=== PATIENT | female | born 1985 | race Caucasian/White ===

== ENCOUNTER 2019-03-16 12:36 | Emergency (ER) | payer MEDICAID, OTHER, SELFPAY ==
[~2019-03-16] VITALS: Ht 160 cm; Wt 62.1 kg
[2019-03-16 12:57] VITALS: BP 101/47
[2019-03-16] MEDS ORDERED: DIPHENHYDRAMINE 25 MG CAPSULE PO ONE (13:30)
[2019-03-16] MEDS ORDERED: DIPHENHYDRAMINE 25 MG CAPSULE ONE (13:33)
== END 2019-03-16 13:54 | disposition home or self-care (01) ==
LOC: ED 13:33
DX: T78.49XA Other allergy, initial encounter (principal); R21 Rash and other nonspecific skin eruption; L03.211 Cellulitis of face; X58.XXXA Exposure to other specified factors, initial encounter
CPT/HCPCS: 99283; Q0163

== ENCOUNTER 2019-09-29 17:14 | Emergency (ER) | payer MEDICAID ==
[~2019-09-29] VITALS: Ht 160 cm; Wt 62.1 kg
[2019-09-29 17:15] VITALS: BP 134/65
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
[2019-09-29] MEDS ORDERED: ONDANSETRON 2MG/ML, 2ML IVPush ONE (18:00)
[2019-09-29] MEDS ORDERED: FAMOTIDINE 20 MG/2 ML IVPush ONE (18:00)
[2019-09-29] MEDS ORDERED: ONDANSETRON 2MG/ML, 2ML ONE (18:01)
[2019-09-29] MEDS ORDERED: FAMOTIDINE 20 MG/2 ML ONE (18:01)
[2019-09-29 18:24] LABS: BASOPHILS # (AUTO) 0.02 x10^3/uL (0-0.1); BASOPHILS % (AUTO) 0 % (0-1); EOSINOPHILS # (AUTO) 0.03 x10^3/uL (0-0.4); EOSINOPHILS % (AUTO) 0 % (1-7); LYMPHOCYTES # (AUTO) 1.51 x10^3/uL (1-3.4); LYMPHOCYTES % (AUTO) 19 % (22-44); MD NO; MEAN CORPUSCULAR HEMOGLOBIN 31.6 pg (27.0-34.8); MEAN PLATELET VOLUME 9.2 fL (7.4-10.4); MONOCYTES # (AUTO) 0.67 x10^3/uL (0.2-0.8); MONOCYTES % (AUTO) 9 % (2-9); NEUTROPHILS # (AUTO) 5.64 x10^3/uL (1.8-6.8); NEUTROPHILS % (AUTO) 72 % (42-75); PLATELET COUNT 186 x10^3/uL (130-400); RED CELL DISTRIBUTION WIDTH 13.2 % (9.6-15.2)
[2019-09-29 18:34] LABS: ALANINE AMINOTRANSFERASE 13 U/L (12-78); ALBUMIN 3.6 g/dL (3.4-5.0); ANION GAP 7 mmol/L (5-15); CALCIUM 8.9 mg/dL (8.5-10.1); CHLORIDE 109 mmol/L (98-107)
[2019-09-29 18:37] LABS: ALKALINE PHOSPHATASE 55 U/L (45-117); BILIRUBIN,TOTAL 0.6 mg/dL (0.2-1.0); TOTAL PROTEIN 7.1 g/dL (6.4-8.2)
[2019-09-29] MEDS ORDERED: SODIUM CHLORIDE 0.9% 1,000ML IVBOLUS ONE (19:00)
[2019-09-29] MEDS ORDERED: SODIUM CHLORIDE FLUSH 10ML SYR IVF ONE (19:00)
[2019-09-29 19:02] LABS: MICROSCOPIC AUTO
== END 2019-09-29 19:59 ==
LOC: ED 19:53
DX: O21.0 Mild hyperemesis gravidarum (principal); O21.8 Other vomiting complicating pregnancy; O26.891 Other specified pregnancy related conditions, first trimester; R10.30 Lower abdominal pain, unspecified; Z3A.10 10 weeks gestation of pregnancy; Z87.891 Personal history of nicotine dependence
CPT/HCPCS: 36415; 76801; 80053; 81001; 85025; 96361; 96374; 96375; 99284; J2405; J3490; J7030

== ENCOUNTER 2019-12-04 19:46 | Emergency (ER) | payer MEDICAID, OTHER ==
[~2019-12-04] VITALS: Ht 157.5 cm; Wt 68.3 kg
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
[2019-12-04] MEDS ORDERED: [UNRECOGNIZED DRUG - OTHER] PO (20:09)
[2019-12-04] MEDS ORDERED: ZIPR40CA2 PO (20:09)
[2019-12-04] MEDS ORDERED: LEVO75TA5 PO (20:09)
[2019-12-04] MEDS ORDERED: FAMO20TA7 PO (20:09)
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
--- NOTE | 2019-12-04 20:32 | NUR ---
L AND D CALLED TO CHECK HEART TONES. PT RESTING IN [place], NO CHANGE IN CONDITION, WCTM.
--- NOTE | 2019-12-04 20:58 | NUR ---
L&D RN at bedside, pt denies any leaking or bleeding, abd palpates soft, no bruising on abd noted at this time. heart tones ausculated over [id number], movement audible. pt states her OB is Dr. Davis. Dr. Kaplan oncall for Dr. Davis, call Dr. Kaplan with status update. md said no further orders defer to ER md.
[2019-12-04] MEDS ORDERED: ACETAMINOPHEN 325 MG TABLET PO ONE (21:30)
--- NOTE | 2019-12-04 21:42 | NUR ---
PT RESTING IN [facility], STATES SHE IS "CRAMPING REALY BAD", PT MEDICATED PER JUL. NAD. WCTM. CALL LIGHT ON LAP, WAITING FOR US RESULTS.
[2019-12-04] MEDS ORDERED: ACETAMINOPHEN 325 MG TABLET ONE (21:46)
[2019-12-04 22:13] VITALS: BP 106/73
--- NOTE | 2019-12-04 22:56 | NUR ---
Patient/Caregiver given discharge instructions and they have confirmed that they understand the instructions. Patient ambulatory with steady gait. DENIES ADDITIONAL NEEDS OR QUESTIONS AT THIS TIME. NAD, VSS. NO BELONGINGS LEFT IN ROOM AT TIME OF DC.
== END 2019-12-04 23:00 | disposition home or self-care (01) ==
LOC: ED 21:38
DX: O9A.212 Injury, poisoning and certain other consequences of external causes complicating pregnancy, second trimester (principal); S39.91XA Unspecified injury of abdomen, initial encounter; Z3A.20 20 weeks gestation of pregnancy; V57.6XXA Passenger in pick-up truck or van injured in collision with fixed or stationary object in traffic accident, initial encounter; Y93.89 Activity, other specified; Y92.410 Unspecified street and highway as the place of occurrence of the external cause; Y99.8 Other external cause status
CPT/HCPCS: 76815; 99285

== ENCOUNTER 2019-12-09 10:43 | Outpatient (CLI) | payer MEDICAID, OTHER ==
[~2019-12-09] VITALS: Ht 157.5 cm; Wt 68.2 kg
[~2019-12-09 10:43] MED LIST: FAMO20TA7 PO; LEVO75TA5 PO; ZIPR40CA2 PO; [UNRECOGNIZED DRUG - OTHER] PO
[2019-12-09 11:09] VITALS: BP 102/56
[2019-12-09 11:15] LABS: MICROSCOPIC NOT IND
[2019-12-09 13:06] LABS: CLUE CELLS NONE SEEN (NONE SEEN); WET PREP WBCS MODERATE (FEW)
[2019-12-09 13:46] LABS: CLUE CELLS NONE SEEN (NONE SEEN); WET PREP WBCS MANY (FEW)
== END 2019-12-09 13:48 | disposition home or self-care (01) ==
LOC: LDOP 10:43
PROVIDERS: ATTEND Obstetrics & Gynecology
DX: O09.512 Supervision of elderly primigravida, second trimester (principal); O26.892 Other specified pregnancy related conditions, second trimester; R10.9 Unspecified abdominal pain; Z3A.21 21 weeks gestation of pregnancy
CPT/HCPCS: 81003; 87086; 87210; 87491; 87591; 87808; 99201; G0463

== ENCOUNTER 2019-12-22 03:00 | Outpatient (CLI) | payer MEDICAID, OTHER ==
[~2019-12-22] VITALS: Ht 157.5 cm; Wt 66.8 kg
[2019-12-22 03:00] VITALS: BP 118/66
[2019-12-22 03:15] LABS: MICROSCOPIC INDICATED
[2019-12-22] MEDS ORDERED: ONDANSETRON 2MG/ML, 2ML ONE (03:50)
[2019-12-22] MEDS ORDERED: ONDANSETRON 2MG/ML, 2ML IVPush ONE (04:00)
[2019-12-22] MEDS ORDERED: LACTATED RINGERS 1,000 ML IV SCH ×2 (04:00→05:30)
[2019-12-22] MEDS ORDERED: PLEASE ENTER HEIGHT AND WEIGHT MC SCH (04:30)
== END 2019-12-22 06:18 | disposition home or self-care (01) ==
LOC: LDOP 03:00
PROVIDERS: ATTEND Obstetrics & Gynecology
DX: O26.892 Other specified pregnancy related conditions, second trimester (principal); Z3A.23 23 weeks gestation of pregnancy; Z79.899 Other long term (current) drug therapy
CPT/HCPCS: 59025; 81001; 87086; 96361; 96374; 99211; J2405; J7120; 96360; 96366; G0463

== ENCOUNTER 2019-12-25 03:16 | Outpatient (CLI) | payer MEDICAID ==
[~2019-12-25] VITALS: Ht 157.5 cm; Wt 67.2 kg
[2019-12-25 03:55] LABS: MICROSCOPIC INDICATED
== END 2019-12-25 04:53 | disposition home or self-care (01) ==
LOC: LDOP 03:16
PROVIDERS: ATTEND Obstetrics & Gynecology
DX: O26.892 Other specified pregnancy related conditions, second trimester (principal); R10.9 Unspecified abdominal pain; Z3A.23 23 weeks gestation of pregnancy
CPT/HCPCS: 81001; 87086; 99211; G0463

== ENCOUNTER 2020-01-22 16:03 | Outpatient (CLI) | payer MEDICAID ==
[~2020-01-22] VITALS: Ht 157.5 cm; Wt 67.7 kg
[2020-01-22 16:36] VITALS: BP 121/73
== END 2020-01-22 16:55 | disposition home or self-care (01) ==
LOC: LDOP 16:03
PROVIDERS: ATTEND Obstetrics & Gynecology
DX: O09.92 Supervision of high risk pregnancy, unspecified, second trimester (principal); O36.8120 Decreased fetal movements, second trimester, not applicable or unspecified; Z3A.27 27 weeks gestation of pregnancy
CPT/HCPCS: 59025

== ENCOUNTER 2020-02-11 14:56 | Outpatient (CLI) | payer MEDICAID | END 2020-02-11 18:10 | disposition home or self-care (01) | LOC: LDOP 14:56 | PROVIDERS: ATTEND Obstetrics & Gynecology | DX: O36.8190 Decreased fetal movements, unspecified trimester, not applicable or unspecified (principal); O32.1XX0 Maternal care for breech presentation, not applicable or unspecified; O09.523 Supervision of elderly multigravida, third trimester; Z3A.30 30 weeks gestation of pregnancy | CPT/HCPCS: 59025; 76819 ==

== ENCOUNTER 2020-03-02 14:02 | Outpatient (CLI) | payer MEDICAID | END 2020-03-02 23:59 | disposition home or self-care (01) | LOC: LDOP 14:02 | PROVIDERS: ATTEND Obstetrics & Gynecology | DX: O09.93 Supervision of high risk pregnancy, unspecified, third trimester (principal); O26.893 Other specified pregnancy related conditions, third trimester; R10.9 Unspecified abdominal pain; Z3A.33 33 weeks gestation of pregnancy | CPT/HCPCS: 59025 ==

== ENCOUNTER 2020-03-02 14:42 | Emergency (ER) | payer MEDICAID ==
[~2020-03-02] VITALS: Ht 160 cm; Wt 71.3 kg
[2020-03-02] MEDS ORDERED: ACETAMINOPHEN 500 MG TABLET ONE (15:22)
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
[2020-03-02] MEDS ORDERED: ACETAMINOPHEN 500 MG TABLET PO ONE (15:30)
[2020-03-02 15:44] LABS: BASOPHILS % (AUTO) 0 % (0-1); EOSINOPHILS % (AUTO) 0 % (1-7); LYMPHOCYTES % (AUTO) 13 % (22-44); MEAN CORPUSCULAR HEMOGLOBIN 30.4 pg (27.0-34.8); MEAN CORPUSCULAR HGB CONC 33.3 g/dL (32.4-35.8); MEAN PLATELET VOLUME 9.4 fL (7.4-10.4); MONOCYTES % (AUTO) 9 % (2-9); NEUTROPHILS % (AUTO) 78 % (42-75); PLATELET COUNT 133 x10^3/uL (130-400); RED BLOOD COUNT 4.32 x10^6/uL (3.82-5.3); RED CELL DISTRIBUTION WIDTH 14.5 % (9.6-15.2)
[2020-03-02 15:47] LABS: ALBUMIN 2.8 g/dL (3.4-5.0); ANION GAP 8 mmol/L (5-15); CALCIUM 8.8 mg/dL (8.5-10.1); CHLORIDE 106 mmol/L (98-107); CREATININE 0.47 mg/dL (0.55-1.02)
[2020-03-02 15:51] LABS: MD NO
[2020-03-02 15:55] LABS: MICROSCOPIC INDICATED
[2020-03-02 16:14] VITALS: BP 110/76
== END 2020-03-02 17:08 | disposition home or self-care (01) ==
LOC: ED 16:33
DX: O23.13 Infections of bladder in pregnancy, third trimester (principal); R10.9 Unspecified abdominal pain; Z3A.33 33 weeks gestation of pregnancy
CPT/HCPCS: 36415; 80048; 81001; 82040; 85025; 87086; 99283